=== PATIENT | female | born 1965 | race Caucasian/White ===

== ENCOUNTER 2019-02-19 06:06 | Observation (INO) ==
[~2019-02-19 06:06] MED LIST: ACETAMINOPHEN 500 MG TABLET PO ONE; Gabapentin 600 MG TABLET PO ONE; LIDOCAINE W/ SODIUM BICARB 0.5 ML SYR SUBD ONE; Nasal Sanitizer POPSWAB ampule 3 AMP (Nozin) PREOP DOSE ENOS SCH; PANTOPRAZOLE 20 MG TABLET.DR PO ONE
[2019-02-19] MEDS ORDERED: PANTOPRAZOLE 20 MG TABLET.DR PO ONE ×2 (06:12→07:31)
[2019-02-19] MEDS ORDERED: LIDOCAINE W/ SODIUM BICARB 0.5 ML SYR ONE ×2 (06:13→12:30)
[2019-02-19] MEDS ORDERED: ACETAMINOPHEN 500 MG TABLET PO ONE (06:13)
[2019-02-19] MEDS ORDERED: Gabapentin 600 MG TABLET PO ONE (06:13)
[2019-02-19] MEDS ORDERED: Lactated Ringers 1,000 ML PRIMARY IV ONE ×2 (06:13→11:18)
[2019-02-19] MEDS ORDERED: EPI IV ONE (06:48)
[2019-02-19] MEDS ORDERED: ROPIVACAINE HCL 7.5 MG/1 ML - 20 ML ONE (06:48)
[2019-02-19] MEDS ORDERED: BUPIVACAINE 0.25% IV ONE (06:48)
[2019-02-19] MEDS ORDERED: MIDAZOLAM HCL 2 MG/2 ML VIAL ONE ×2 (06:49→12:24)
[2019-02-19] MEDS ORDERED: DEXMEDETOMIDINE HCL 200 MCG/2 ML VIAL IV ONE ×2 (06:49→12:25)
[2019-02-19] MEDS ORDERED: fentaNYL Inj 100 MCG/2 ML VIAL ONE ×4 (06:49→12:24)
[2019-02-19] MEDS ORDERED: Ropivacaine 0.2% VIAL 0 ML ONE (06:57)
[2019-02-19] MEDS ORDERED: PROPOFOL 10 MG/1 ML (200 MG/20 ML) VIAL IV ONE (06:57)
[2019-02-19] MEDS ORDERED: EPINEPHrine Inj (1:1,000) 30mg/30ml vial ONE ×2 (06:57→10:16)
[2019-02-19] MEDS ORDERED: BUPivacaine Inj 0.25% PF - 10ml vial ONE ×2 (06:57→06:58)
[2019-02-19] MEDS ORDERED: BETAMET ACET/BETAMET NA PH 6 MG/1 ML - 5 ML ONE (06:57)
[2019-02-19] MEDS ORDERED: LIDOCAINE MPF 2% - 5 ML (20 MG/1 ML) ONE (06:58)
[2019-02-19] MEDS: Lactated Ringers 1,000 ML PRIMARY IV SCH ×2 (07:00→16:05)
[2019-02-19] MEDS ORDERED: ceFAZolin Inj 2gm (Premix) 2 GM/50 ML BAG IV ONE ×2 (07:43→09:14)
[2019-02-19 08:03] VITALS: RESP 16
[2019-02-19] MEDS ORDERED: ROCURONIUM 10 MG/1 ML - 5 ML VIAL IVP ONE (08:31)
[2019-02-19] MEDS ORDERED: HYDROmorphone 2 MG/1 ML IVP PRN ×2 (09:23→15:57)
[2019-02-19] MEDS ORDERED: LIDOCAINE W/ SODIUM BICARB 0.5 ML SYR SUBD PRN (09:23)
[2019-02-19] MEDS ORDERED: Prochlorperazine Edisylate Inj 10mg/2ml vial IVP PRN (09:23)
[2019-02-19] MEDS ORDERED: ATROPINE SULFATE 0.4 MG/1 ML VIAL IVP PRN (09:23)
[2019-02-19] MEDS ORDERED: Lactated Ringers 1,000 ML PRIMARY IV SCH ×2 (09:30→15:57)
[2019-02-19] MEDS ORDERED: DEXAMETHASONE PF 10 MG/1 ML VIAL ONE (09:57)
[2019-02-19] MEDS ORDERED: ONDANSETRON 4 MG/2 ML VIAL ONE ×2 (09:58→14:17)
[2019-02-19] MEDS ORDERED: KETOROLAC 30 MG/1 ML VIAL ONE (11:24)
[2019-02-19] MEDS ORDERED: KETOROLAC 15 MG/1 ML VIAL IVP PRN (11:34)
[2019-02-19] MEDS ORDERED: HYDROcodone-APAP 7.5 MG-325 MG TABLET PO PRN ×2 (11:34→15:57)
[2019-02-19] MEDS ORDERED: ONDANSETRON 4 MG/2 ML VIAL IVP PRN ×2 (11:34→15:57)
[2019-02-19] MEDS ORDERED: HYDROcodone-APAP 7.5 MG-325 MG TABLET PO ONE (11:46)
[2019-02-19] MEDS: fentaNYL Inj 100 MCG/2 ML VIAL IVP PRN ×2 (12:12→12:18)
[2019-02-19] MEDS ORDERED: BUPIVACAINE 0.5% W/ EPI - 10 ML VIAL ONE (12:25)
[2019-02-19] MEDS ORDERED: Heparin Drip 25,000 UNIT/500 ML BAG IV SCH (15:57)
[2019-02-19 16:09] VITALS: BP 130/72; TEMP 97.9; O2SAT 93
[2019-02-19] MEDS ORDERED: ENOXAPARIN SODIUM 100 MG/1 ML SYRINGE SUBCUT SCH (16:30)
[2019-02-19 17:24] LABS: BASOPHILS # (AUTO) 0 10*3/UL; BASOPHILS % (AUTO) 0 % (0-1); EOSINOPHILS # (AUTO) 0 10*3/UL; EOSINOPHILS % (AUTO) 0 % (0-8); Hematocrit [HCT] 41.3 % (37.0-47.0); Hemoglobin [HGB] 13.3 g/dL (12.0-16.0); LYMPHOCYTES # (AUTO) 0.35 10*3/uL; MEAN CORPUSCULAR HGB CONC 32.2 g/dL (33-37); MEAN CORPUSCULAR VOLUME 86.9 FL (81-99); MEAN PLATELET VOLUME 9.1 FL (7.4-12.2); MONOCYTES # (AUTO) 0.04 10*3/UL (0.3-0.8); MONOCYTES % (AUTO) 0.5 % (5-15); NEUTROPHILS # (AUTO) 7.41 10*3/UL; NEUTROPHILS % (AUTO) 94.9 % (50-80); RED BLOOD COUNT 4.75 10^6/uL (4.20-5.40)
[2019-02-19 17:25] LABS: PLATELET MORPHOLOGY COMMENT NORMAL MORPHOLOGY (NORM); RBC MORPHOLOGY COMMENT NORMAL MORPHOLOGY (NORM); WBC MORPHOLOGY COMMENT NORMAL MORPHOLOGY (NORM)
[2019-02-19 17:41] LABS: BLOOD UREA NITROGEN 12 mg/dL (7-22); SERUM ALBUMIN 4.3 g/dL (3.5-4.8)
[2019-02-19 18:31] LABS: Erythrocyte Sediment Rate 7 MM/HR (0-20)
[2019-02-22 10:45] LABS: MYELOPEROXIDASE AB <0.2 U
== END 2019-02-19 17:37 | disposition short-term general hospital (02) ==
LOC: OR 06:06 → MED/SURG 06:06 → OPS 07:40
PROVIDERS: ADMIT Family Medicine; ATTEND Orthopaedic Surgery